=== PATIENT | male | born 1960 | race Caucasian/White ===

== ENCOUNTER → 2018-11-23 | Outpatient (CLI) | payer OTHER | END | disposition home or self-care (01) | LOC: RADPV 09:20 | PROVIDERS: ATTEND Internal Medicine Geriatric Medicine | DX: M87.059 Idiopathic aseptic necrosis of unspecified femur (principal) | CPT/HCPCS: 77080 ==

== ENCOUNTER 2021-01-13 21:55 | Emergency (ER) | payer OTHER ==
[~2021-01-13] VITALS: Ht 177.8 cm; Wt 90.9 kg
[2021-01-13] MEDS ORDERED: INSU100V SQ (22:19)
[2021-01-13] MEDS ORDERED: FURO20 PO (22:19)
[2021-01-13] MEDS ORDERED: ALBU8HFA IH (22:19)
[2021-01-14] MEDS ORDERED: FUROSEMIDE 40 MG/4 ML VIAL IVP ONE
[2021-01-14 00:20] LABS: BASOPHILS % (AUTO) 0.7 % (0.0-2.0); EOSINOPHILS % (AUTO) 3.6 % (1.0-6.0); HEMATOCRIT 38.7 % (41-53); LYMPHOCYTES % (AUTO) 19.9 % (22.0-44.0); MEAN CORPUSCULAR HGB CONC 31.1 G/dL (31.0-37.0); MEAN CORPUSCULAR VOLUME 84 fL (80-100); MONOCYTES # (AUTO) 0.7 K/uL (0.1-1.0); MONOCYTES % (AUTO) 6.8 % (2.0-9.0); PLATELET COUNT (AUTO) 272 K/uL (150-450); RED BLOOD CELL COUNT(AUTO) 4.61 MIL/uL (4.50-5.90); RED CELL DISTRIBUTION WIDTH 18.2 % (11.5-14.5)
[2021-01-14 00:25] LABS: ANION GAP 9 mmol/L (8-16); CALCIUM, TOTAL 8.9 mg/dL (8.8-10.5); CARBON DIOXIDE 30 mmol/L (22-29); CHLORIDE 105 mmol/L (98-107); CREATININE 1.15 mg/dL (0.60-1.30); GLOMERULAR FILTR. RATE CALC > 60 mL/min (>60); GLUCOSE,RANDOM 96 mg/dL (70-110); POTASSIUM 3.5 mmol/L (3.5-5.1); SODIUM SERUM 144 mmol/L (136-145); UREA NITROGEN, BLOOD 24 mg/dL (7-18)
[2021-01-14 00:32] LABS: ALANINE AMINOTRANSFERASE 16 U/L (12-78); ALBUMIN 3.2 g/dL (3.4-5.0); ALKALINE PHOSPHATASE 135 U/L (46-116); ASPARTATE AMINOTRANSFERASE 22 U/L (15-37); BILIRUBIN,TOTAL 0.4 mg/dL (0.1-1.0); CREATINE KINASE, TOTAL ONLY 68 U/L (39-308); LIPASE 56 U/L (73-393); TOTAL PROTEIN, SERUM 7.8 g/dL (6.4-8.2)
[2021-01-14 00:34] LABS: B-TYPE NATRIURETIC PEPTIDE 3310 pg/mL (0-100)
[2021-01-14 01:09] LABS: APPEARANCE,URINE CLEAR (CLEAR); BILIRUBIN,URINE NEGATIVE (NEGATIVE); GLUCOSE, URINE (UA) NEGATIVE (NEGATIVE); KETONES,URINE NEGATIVE (NEGATIVE); LEUKOCYTE ESTERASE ,URINE NEGATIVE (NEGATIVE); NITRATE,URINE NEGATIVE (NEGATIVE); OCCULT BLOOD,URINE NEGATIVE (NEGATIVE); PH,URINE 6.5 (5.0-8.0); PROTEIN,URINE POS 1+ (NEGATIVE); UROBILINOGEN,URINE 0.2 mg/dL (<=1.0)
[2021-01-14] MEDS ORDERED: HydrALAZINE HCL 20 MG/ML VIAL IVP ONE (02:00)
[2021-01-14] MEDS ORDERED: IOHEXOL 350 MG/ML 100 ML VIAL ONE (02:53)
[2021-01-14] MEDS ORDERED: SODIUM CHLORIDE 0.9% 100 ML ONE (02:54)
[2021-01-14] MEDS ORDERED: LABETALOL HCL 200 MG in DEXTROSE 5%-WATER 160 ML IV PRN (04:00)
[2021-01-14 05:04] LABS: COVID AG,FIA SOURCE NASAL SWAB
[2021-01-14] MEDS ORDERED: ESMOLOL HCL 2,500 MG/NACL 250 ML IV PRN (05:15)
[2021-01-14] MEDS ORDERED: ESMOLOL HCL 10 MG/ML 10 ML VIAL IVP ONE (05:15)
[2021-01-14 06:44] VITALS: BP 135/87
== END 2021-01-14 07:34 | disposition short-term general hospital (02) ==
LOC: EMS 21:58
DX: I71.00 Dissection of unspecified site of aorta (principal); R60.0 Localized edema; E11.8 Type 2 diabetes mellitus with unspecified complications; F15.99 Other stimulant use, unspecified with unspecified stimulant-induced disorder; R91.8 Other nonspecific abnormal finding of lung field; I71.2 Thoracic aortic aneurysm, without rupture; I50.9 Heart failure, unspecified; I16.0 Hypertensive urgency; Z20.822 Contact with and (suspected) exposure to COVID-19
CPT/HCPCS: 36415; 71275; 74022; 74175; 80053; 81003; 82550; 82962; 83690; 83880; 84484; 85025; 87426; 93005; 96365; 96366; 96367; 96375; 96376; 99291; 99292; J0360; J1940; J3490 ×2; J7050; J7060; Q9967; 96368